=== PATIENT | female | born 1980 | race Caucasian/White ===

== ENCOUNTER 2018-06-22 08:46 | Emergency (ER) | payer MEDICAID ==
--- NOTE | 2018-07-01 12:00 | ER Physician Documentation ---
DATE OF SERVICE: 06/22/2018 HISTORY OF PRESENT ILLNESS: This is a 37-year-old female patient who presents to the Emergency Room with onset x 3 days of fever, cough and congestion. The patient denies trauma, loss of consciousness, altered level of consciousness, altered mental status, headaches, earaches, sore throat, neck pain, chest pain, shortness of breath, abdominal pain, anorexia, nausea, vomiting, diarrhea, or constipation. The patient is eating and urinating well. The patient last urinated about an hour prior to admission. The patient denies . PAST MEDICAL HISTORY: None. MEDICATIONS: None. ALLERGIES: None. SOCIAL HISTORY: The patient denies smoking, alcohol, or drug abuse. FAMILY HISTORY: Not known. REVIEW OF SYSTEMS: Otherwise, essentially noncontributory. PHYSICAL EXAMINATION: GENERAL: Found the patient to be in no acute distress, alert and oriented x 3, afebrile. VITAL SIGNS: Stable. HEENT: Exam revealed positive nasal congestion. Ears and pharynx within normal limits for the HEENT exam. NECK: Supple, no meningeal signs, no cervical tenderness. No bruits. CARDIOVASCULAR: Regular rate and rhythm. LUNGS: Clear with good breath sounds bilaterally. ABDOMEN: Soft, nontender, normoactive bowel sounds, no pulsatile masses. EXTREMITIES: No edema, clubbing or cyanosis. NEUROLOGIC: Showed no focal signs. SKIN: Shows good turgor with moist mucous membranes. HOSPITAL COURSE. The patient tolerated oral fluids well in the Emergency Room and was asymptomatic upon discharge. Thus, the patient was discharged with a prescription for amoxicillin 500 mg p.o. 3 times a day for 10 days, Tylenol 500 mg 4 times a day p.r.n. fever. Cool mist vaporizer and the patient is to encourage fluids. Return to the Emergency Room as needed if existing signs and symptoms should reoccur and/or get worse and/or any other new signs and symptoms should occur. Aftercare instructions given for all the above diagnoses. The patient will be referred to ear, nose and throat specialist and diploma maker as soon as possible. Otherwise, follow up with her primary physician in one day or as needed. Return to the Emergency Room as needed if concerned. DIAGNOSES: Cough, bronchitis, congestion, sinusitis, fever, and upper respiratory tract infection. JOB# [id number]
== END 2018-06-22 10:22 | disposition home or self-care (01) ==
LOC: ER 08:46
DX: J40 Bronchitis, not specified as acute or chronic (principal); J32.9 Chronic sinusitis, unspecified; J06.9 Acute upper respiratory infection, unspecified
CPT/HCPCS: Z7502